=== PATIENT | male | born 1935 | race Caucasian/White ===

== ENCOUNTER 2021-07-18 10:06 | Outpatient (REF) | payer MEDICARE, SELFPAY ==
[2021-07-18 10:36] LABS: Binax Internal Control QC Valid; Binax Now Covid-19 Ag Negative (Negative)
== END 2021-07-18 10:07 | disposition home or self-care (01) ==
LOC: HO.HMGCLDS 10:06
PROVIDERS: Visit Provider Hospitalist
DX: Z13.89 Encounter for screening for other disorder (principal)